=== PATIENT | female | born 1940 | race Caucasian/White ===

== ENCOUNTER 2016-10-09 11:54 | Emergency (ER) | payer MEDICARE, OTHER | END 2016-10-09 14:49 | disposition home or self-care (01) | LOC: FER 11:54 | DX: S52.572A Other intraarticular fracture of lower end of left radius, initial encounter for closed fracture (principal); W01.0XXA Fall on same level from slipping, tripping and stumbling without subsequent striking against object, initial encounter; Y92.009 Unspecified place in unspecified non-institutional (private) residence as the place of occurrence of the external cause | CPT/HCPCS: 73090; 73110; 73130; 99283 ==

== ENCOUNTER 2022-01-06 09:15 | Emergency (ER) | payer OTHER ==
[~2022-01-06 09:15] MED LIST: ACETAMINOPHEN500 MG PO; AMITIZA8 MCG PO; B-12500 MCG PO; CLARITIN10 MG PO; DULCOLAX5 M1 PO; FEOSOL325 MG PO; HUMULIN R100 UNIT/1 SC; ISOSORBIDE MONO60 MG PO; K-DUR20 MEQ PO; KLONOPIN0.5 MG PO; LAMICTAL100 MG PO; LASIX20 MG PO; LEVAQUIN500 MG PO; LEVEMIR VI100 UNITS/ SC; LEVOTHYROXINE50 MCG PO; LIPITOR20 MG PO; METFORMIN HCL500 MG PO; MILK OF MA400 MG/5 M PO; MIRALAX17 GM PO; NEURONTIN100 MG PO; NORCO 5-325 TA1 EACH PO; NOVOLOG VI100 UNIT/1 SC; NOVOLOG VI100 UNIT/1 SQ; PAIN RELIEVER500 M1 PO; PHENERGAN12.5 M1 PO; PROMOD946 ML PO; PROTONIX 40MG T40 MG PO; REGLAN5 MG PO; SEROQUEL 25MG T25 MG PO; TAMOXIFEN CITRA20 MG PO; TRAZODONE 50MG50 MG PO; VENLAFAXINE HCL75 MG PO; XARELTO10 MG PO; [UNRECOGNIZED DRUG - OTHER] PR
[2022-01-06 10:22] LABS: BILIRUBIN 1+ mg/dL (NEGATIVE); BLOOD NEGATIVE Ery/uL (NEGATIVE); COLOR YELLOW (YELLOW); GLUCOSE (U) NORMAL (NORMAL); LEUKOCYTES 2+ Leu/uL (NEGATIVE); NITRITE POSITIVE (NEGATIVE); PROTEIN TRACE (LOW) mg/dL (NEGATIVE); SPECIFIC GRAVITY 1.025 (1.001-1.030); UROBILINOGEN 0.2 mg/dL (0.2-1.0)
[2022-01-06 10:23] LABS: CLARITY HAZY (CLEAR)
[2022-01-06 10:39] LABS: BACTERIA 4+
[2022-01-06 10:41] LABS: URINARY WBC TNTC
[2022-01-06 10:42] LABS: URINARY RBC RARE
[2022-01-06 11:23] LABS: BASOPHIL 0.5 % (0-2); EOSINOPHIL 1.8 % (0-7); HCT 35.7 % (37.0-47.0); HGB 11.1 g/dl (12.5-16.0); LYMPHOCYTE 38.2 % (15-48); MCH 30.5 pg (25.0-31.0); MCHC 31.1 g/dL (32.0-36.0); MCV 98.1 fL (78.0-100.0); MONOCYTE 9.9 % (0-12); MPV 9.7 fL (6.0-9.5); NEUTROPHIL 48.9 % (41-80); NRBC 0; PLT 103 K/uL (150-400); RBC 3.64 M/uL (4.20-5.40); RDW 15.5 % (11.5-14.0); WBC 7.7 K/uL (4.0-10.5)
[2022-01-06 11:40] LABS: ALBUMIN 2.5 g/dL (3.4-5.0); BILIRUBIN - TOTAL 0.5 mg/dL (0.2-1.0); BUN/CREAT RATIO (CALC) 13.4 RATIO; CREATININE 0.82 mg/dL (0.51-0.95); GLOBULIN (CALCULATION) 3.4 g/dL; POTASSIUM 4.2 mmol/L (3.5-5.1); TOTAL PROTEIN 5.9 g/dL (6.4-8.2)
[2022-01-06] MEDS ORDERED: CEPHALEXIN500 MG PO (11:54)
== END 2022-01-06 12:35 | disposition home or self-care (01) ==
LOC: FER 09:15
PROVIDERS: Emergency Medicine
DX: F03.91 Unspecified dementia, unspecified severity, with behavioral disturbance (principal); N39.0 Urinary tract infection, site not specified; Z66 Do not resuscitate; Z88.1 Allergy status to other antibiotic agents; Z88.6 Allergy status to analgesic agent; Z88.8 Allergy status to other drugs, medicaments and biological substances
CPT/HCPCS: 36415; 36600; 70450; 71045; 80053; 81001; 82803; 85025; 87076; 87088; 87186; 93005